=== PATIENT | male | born 1955 | race Caucasian/White ===

== ENCOUNTER 2022-07-09 02:13 | Inpatient (IN) | payer OTHER ==
[2022-07-09 03:27] LABS: Absolute Lymphocytes (CBC) 0.7 K/uL (0.7-4.9); Lymphocytes % 5.4 % (15.3-44.8); MCV 88.7 fL (80-100); MPV 7.4 fL (7.6-11.3); RBC Red Blood Cell Count 3.27 M/uL (4.33-5.43)
[2022-07-09 03:32] LABS: Protime INR 1.27
[2022-07-09] MEDS ORDERED: ACETAMINOPHEN 500 MG TAB ONE (03:39)
[2022-07-09] MEDS ORDERED: MORPHINE 4 MG/ML SYR ONE (03:39)
[2022-07-09] MEDS ORDERED: ONDANSETRON 4 MG/2 ML VIAL ONE (03:40)
[2022-07-09 03:45] LABS: Albumin 3.4 g/dL (3.4-5.0); Bilirubin Total 0.9 mg/dL (0.2-1.0); Potassium 3.4 mmol/L (3.5-5.1); Protein, Total 7.2 g/dL (6.4-8.2)
[2022-07-09] MEDS ORDERED: NA CHLORIDE 0.9% 250 ML ONE ×2 (04:05→06:15)
[2022-07-09] MEDS ORDERED: VANCOMYCIN 1 GM/VIAL ONE (04:05)
--- NOTE | 2022-07-09 04:32 | EDPHYS ---
Physician Documentation [facility] Name: Rufina Ahmadi Age: 66 yrs Sex: Male : 1955 Arrival Date: 07/09/2022 Time: 02:21 Bed 15 Private MD: ED Physician Lee Garcia HPI: 07/09 03:08 This 66 yrs old Male presents to ER via Unassigned with complaints of Leg Pain, Leg rn Swelling. 03:08 The patient presents with pain. The complaints affect the left loco. Onset: The rn symptoms/episode began/occurred yesterday. Modifying factors: The symptoms are alleviated by nothing. the symptoms are aggravated by nothing. Associated signs and symptoms: Pertinent positives: fever, rash, warmth. Severity of symptoms: At their worst the symptoms were moderate, in the emergency department the symptoms are unchanged. The patient has not experienced similar symptoms in the past. The patient has not recently seen a physician. Denies pain, reports warmth to LLE, mild swelling, and chills. . Historical: - Allergies: 04:10 PENICILLINS; ja4 - PMHx: 04:10 Kidney disease; ja4 - Immunization history:: Adult Immunizations up to date. - Family history:: not pertinent. - Social history:: Smoking status: Patient denies any tobacco usage or history of. - Hospitalizations: : No recent hospitalization is reported. ROS: 03:08 Constitutional: + fever and chills Eyes: Negative for injury, pain, redness, and clinical quality rn, Neck: Negative for injury, pain, and swelling, Cardiovascular: Negative for chest pain, palpitations, and edema, Respiratory: Negative for shortness of breath, cough, wheezing, and pleuritic chest pain, Abdomen/GI: Negative for abdominal pain, nausea, vomiting, diarrhea, and constipation, Back: Negative for injury and pain, MS/Extremity: + LLE swelling and pain Skin: + warmth and redness to LLE Neuro: Negative for headache, weakness, numbness, tingling, and seizure. Exam: 03:08 Constitutional: This is a well developed, well nourished patient who is awake, alert, rn and in no acute distress. Head/Face: Normocephalic, atraumatic. Cardiovascular: Tachycardic, irregular Respiratory: + mild tachypnea Abdomen/GI: soft, non-tender Skin: + warmth and erythema LLE MS/ Extremity: Pulses equal, no cyanosis. Neurovascular intact. Full, normal range of motion. Neuro: Awake and alert, GCS 15 06:10 ECG was reviewed by the Attending Physician. rn Vital Signs: 02:34 BP 159 / 82; Pulse 114; Resp 24; Temp 100.4(O); Pulse Ox 97% on R/A; Weight 92.99 kg; 5 Height 5 ft. 10 in. (177.80 cm); 05:32 BP 118 / 72; Pulse 112; Resp 28; Temp 101.4; Pulse Ox 95% on 1 lpm NC; ja4 02:34 Body Mass Index 29.41 (92.99 kg, 177.80 cm) [facility] MDM: 02:23 Patient medically screened. rn 03:48 ED course: Pt meets severe sepsis criteria: Source (A) is cellulitis of LLE, SIRS(B) rn tachycardia and tachypnea as well as elevate WBC; Organ dysfunction (C) is elevated lactate. Already known ESRD. No sign of septic shock at this time. . 04:29 Differential diagnosis: cellulitis, DVT, sepsis. Data reviewed: vital signs, nurses rn notes, lab test result(s), radiologic studies, ultrasound, and as a result, I will admit patient. Counseling: I had a detailed discussion with the patient and/or guardian regarding: the historical points, exam findings, and any diagnostic results supporting the discharge/admit diagnosis, lab results, radiology results, the need for further work-up and treatment in the hospital. Response to treatment: the patient's symptoms have mildly improved after treatment, and as a result, I will admit patient. Admission orders: after a detailed discussion of the patient's condition and case, the admit orders are written by me. 06:02 ED course: Ordered 250cc bolus, still no sign of septic shock, does not require 30ml/kg rn bolus, will give small amount of fluid at a time and reassess given ESRD.. 07/09 02:54 Order name: Blood Culture Adult (2) rn 07/09 02:54 Order name: CBC with Diff; Complete Time: 03:48 rn 07/09 02:54 Order name: CMP; Complete Time: 03:48 rn 07/09 02:54 Order name: Lactate; Complete Time: 03:48 rn 07/09 02:54 Order name: Protime (+inr); Complete Time: 03:48 rn 07/09 02:54 Order name: Ptt, Activated; Complete Time: 03:48 rn 07/09 02:54 Order name: Urine Microscopic Only rn 07/09 02:54 Order name: XRAY Chest (1 view) rn 07/09 02:54 Order name: Extremity Venous Uni Ltd US rn 07/09 05:08 Order name: COVID-19 SARS RT PCR (Document "Date of Onset" if Symptomatic) bb 07/09 07:16 Order name: Lactate Sepsis 2 HR Follow-up EDMS 07/09 02:54 Order name: Cardiac monitoring; Complete Time: 03:58 rn 07/09 02:54 Order name: EKG - Nurse/Tech; Complete Time: 03:58 rn 07/09 02:54 Order name: IV Saline Lock - Large Bore; Complete Time: 03:25 rn 07/09 02:54 Order name: Labs collected and sent; Complete Time: 03:26 rn 07/09 02:54 Order name: O2 Per Protocol; Complete Time: 03:58 rn 07/09 02:54 Order name: O2 Sat Monitoring; Complete Time: 03:58 rn EC:10 Rate is 119 beats/min. Rhythm is irregularly irregular. QRS [place] is Normal. [place] interval rn is normal. QRS interval is normal. QT interval is normal. No Q waves. T waves are Normal. No ST changes noted. Clinical impression: Atrial Fibrillation. Interpreted by me. Reviewed by me. Administered Medications: 03:30 Drug: Zofran (Ondansetron) 4 mg Route: IVP; Site: right antecubital; ja4 07:22 Follow up: Response: No adverse reaction; Nausea is decreased jg9 03:31 Drug: Acetaminophen 1000 mg Route: PO; ja4 07:00 Follow up: Response: No adverse reaction jg9 03:31 Drug: morphine 4 mg Route: IVP; Infused Over: 4 mins; Site: right antecubital; 4 07:22 Follow up: Response: No adverse reaction; Pain is decreased; RASS: Alert and Calm (0) jg9 04:12 Drug: vancoMYCIN 1 grams Route: IVPB; Infused Over: 2 hrs; Site: right antecubital; ja4 07:00 Follow up: IV Status: Completed infusion; IV Intake: 250ml jg9 06:08 Drug: NS 0.9% 250 ml Route: IV; Rate: bolus; Site: right antecubital; ja4 07:00 Follow up: IV Status: Completed infusion; IV Intake: 250ml jg9 Disposition Summary: 07/09/22 04:31 Hospitalization Ordered Hospitalization Status: Inpatient Admission rn Provider: Jun Downey rn Location: Telemetry/MedSurg (Inpatient) rn Condition: Stable rn Problem: new rn Symptoms: have improved rn Bed/Room Type: Standard rn Room Assignment: 414(07/09/22 06:05) mw Diagnosis - Severe sepsis without septic shock rn - Cellulitis of left lower limb rn Forms: - Medication Reconciliation Form rn - SBAR form rn Signatures: Dispatcher [employer] EDMS Sayra Hoyt RN RN Lee Weller MD MD rn Gilmore, Jennifer, RN RN jg9 Francisco Leo RN RN ja4 Corrections: (The following items were deleted from the chart) 04:06 03:08 Constitutional: This is a well developed, well nourished patient who is awake, rn alert, and in no acute distress. Head/Face: Normocephalic, atraumatic. Cardiovascular: Tachycardic, regular Respiratory: + mild tachypnea Abdomen/GI: soft, non-tender Skin: + warmth and erythema LLE MS/ Extremity: Pulses equal, no cyanosis. Neurovascular intact. Full, normal range of motion. Neuro: Awake and alert, GCS 15 rn 06:05 04:31 rn mw
--- NOTE | 2022-07-09 04:32 | ER ---
Nurse's Notes [facility] Name: Rufina Ahmadi Age: 66 yrs Sex: Male : 1955 Arrival Date: 07/09/2022 Time: 02:21 Bed 15 Private MD: Diagnosis: Severe sepsis without septic shock;Cellulitis of left lower limb Presentation: 07/09 04:04 Chief complaint: Patient states: left leg pain for aprox 7 hrs. Coronavirus screen: At ja4 this time, the client does not indicate any symptoms associated with coronavirus-19. Ebola Screen: No symptoms or risks identified at this time. Initial Sepsis Screen: Does the patient meet any 2 criteria? RR > 20 per min. HR > 90 bpm. Yes Does the patient have a suspected source of infection? Yes: Other: left leg. Risk Assessment: Do you want to hurt yourself or someone else? Patient reports no desire to harm self or others. Onset of symptoms was July 08, 2022. 04:04 Method Of Arrival: Ambulatory [facility] 04:04 Acuity: HARINDER 2 ja4 Triage Assessment: 04:10 General: Appears distressed, uncomfortable, obese, Behavior is calm, cooperative, ja4 appropriate for age. Pain: Pain currently is 0 out of 10 on a pain scale. at worst was 10 out of 10 on a pain scale. Quality of pain is described as aching. Musculoskeletal: Reports. Historical: - Allergies: 04:10 PENICILLINS; ja4 - PMHx: 04:10 Kidney disease; ja4 - Immunization history:: Adult Immunizations up to date. - Family history:: not pertinent. - Social history:: Smoking status: Patient denies any tobacco usage or history of. - Hospitalizations: : No recent hospitalization is reported. Screenin:37 Abuse screen: Denies threats or abuse. Nutritional screening: No deficits noted. ja4 Tuberculosis screening: No symptoms or risk factors identified. Fall Risk None identified. Assessment: 03:37 General: Appears uncomfortable, obese, Behavior is cooperative, appropriate for age. ja4 Pain: Pain does not radiate. Pain currently is 10 out of 10 on a pain scale. Is continuous. Cardiovascular: Dialysis shunt:. Respiratory: Respiratory effort is labored. 06:19 Reassessment: report given to ermias arriaza. ja4 Vital Signs: 02:34 BP 159 / 82; Pulse 114; Resp 24; Temp 100.4(O); Pulse Ox 97% on R/A; Weight 92.99 kg; 5 Height 5 ft. 10 in. (177.80 cm); 05:32 BP 118 / 72; Pulse 112; Resp 28; Temp 101.4; Pulse Ox 95% on 1 lpm NC; ja4 02:34 Body Mass Index 29.41 (92.99 kg, 177.80 cm) [facility] ED Course: 02:21 Patient arrived in ED. ja2 02:23 Lee Garcia MD is Attending Physician. rn 02:36 Patient has correct armband on for positive identification. Bed in low position. Call [facility] light in reach. Side rails up X 1. Adult w/ patient. Warm blanket given. Pulse ox on. NIBP on. 02:38 Francisco Leo, KRISHNA is Primary Nurse. ja4 03:26 Blood Culture Adult (2) Sent. ja4 03:37 Inserted saline lock: 20 gauge in right antecubital area, using aseptic technique. ja4 Blood collected. 03:39 XRAY Chest (1 view) In Process Unspecified. EDMS 03:48 Notified ED physician of a critical lab result(s). lactate 3.0, Creatinine of 5.14 Dr jonny Garcia notified. 03:51 Extremity Venous Uni Ltd US In Process Unspecified. EDMS 04:10 Triage completed. ja4 04:31 Jun Downey is Hospitalizing Provider. rn 07:00 Arm band placed on right wrist. jg9 07:19 No provider procedures requiring assistance completed. jg9 07:20 Patient admitted, IV remains in place. jg9 Administered Medications: 03:30 Drug: Zofran (Ondansetron) 4 mg Route: IVP; Site: right antecubital; ja4 07:22 Follow up: Response: No adverse reaction; Nausea is decreased jg9 03:31 Drug: Acetaminophen 1000 mg Route: PO; ja4 07:00 Follow up: Response: No adverse reaction jg9 03:31 Drug: morphine 4 mg Route: IVP; Infused Over: 4 mins; Site: right antecubital; ja4 07:22 Follow up: Response: No adverse reaction; Pain is decreased; RASS: Alert and Calm (0) jg9 04:12 Drug: vancoMYCIN 1 grams Route: IVPB; Infused Over: 2 hrs; Site: right antecubital; ja4 07:00 Follow up: IV Status: Completed infusion; IV Intake: 250ml jg9 06:08 Drug: NS 0.9% 250 ml Route: IV; Rate: bolus; Site: right antecubital; ja4 07:00 Follow up: IV Status: Completed infusion; IV Intake: 250ml jg9 Medication: 03:37 VIS not applicable for this client. ja4 Intake: 07:00 IV: 250ml; Total: 250ml. jg9 07:00 IV: 250ml; Total: 500ml. jg9 Outcome: 04:31 Decision to Hospitalize by Provider. rn 07:19 Admitted to Med/surg accompanied by tech, room 414, with chart, Report called to [facility] report called prior to this nurse arrival 07:20 Condition: stable jg9 07:20 Patient left the ED. jg9 Signatures: Dispatcher [employer] EDLetty Calvin RN RN bb Nieto, Roman, MD MD rn Martinez, Maria Hortensia Soto Jennifer, RN RN jg9 Francisco Leo RN RN ja4 Corrections: (The following items were deleted from the chart) 07:22 07:00 Response: No adverse reaction; Pain is decreased; RASS: Alert and Calm (0) jg9 jg9
--- NOTE | 2022-07-09 05:18 | P.HP ---
Certification for Inpatient Patient admitted to: Inpatient With expected LOS: <2 Midnights Patient will require the following post-hospital care: None Practitioner: I am a practitioner with admitting privileges, knowledge of patient current condition, hospital course, and medical plan of care. Services: Services provided to patient in accordance with Admission requirements found in Title 42 Section 412.3 of the Code of Federal Regulations Patient History Date of Service: 07/09/22 Reason for admission: Cellulitus LLE History of Present Illness: Patient is a 66-year-old male with history of ESRD on HD Monday, hypertension, noninsulin-dependent type 2 diabetes who presented to the ED with complaints of left lower leg pain that began suddenly a few hours prior to arrival. Left lower extremity noted to be warm, tender, and erythematous. Patient was tachycardic, tachypneic, febrile, hypoxic at 88% on RA upon arrival to ED. his labs are significant for WBC 13, hemoglobin 9.7, hematocrit 29, potassium 3.4, glucose 196, creatinine 5.14, BUN 28, lactic acid 3. He was given Tylenol and started on vancomycin. Venous ultrasound pending., Assessment, patient states he is already feeling much better. He is visiting from [place] and has been in the sun and salt water. Wounds/sores noted around entire body. Patient is admitted for further treatment. - Past Medical/Surgical History Diabetic: Yes -: Type 2 Diabetes, Non-Insulin Dependent -: ESRD on HD MWF -: Hypertension -: Nephrectomy -: Appendectomy Psychosocial/ Personal History: Patient lives in [place] with his . - Social History Smoking Status: Never smoker Alcohol use: Yes CD- Drugs: No Caffeine use: Yes Place of Residence: Home Review of Systems General: Fever, Chills Musculoskeletal: Leg Pain Physical Examination - Physical Exam General: Alert, In no apparent distress HEENT: Atraumatic, PERRLA, EOMI, Sclerae nonicteric Neck: Supple, 2+ carotid pulse no bruit, No LAD, Without JVD or thyroid abnormality Respiratory: Clear to auscultation bilaterally, Normal air movement Cardiovascular: Regular rate/rhythm, Normal S1 S2 Gastrointestinal: Normal bowel sounds, No tenderness Integumentary: Skin breakdown, Tenderness/swelling, Erythema, Warmth Neurological: Normal speech, Normal strength at 5/5 x4 extr, Normal tone, Normal affect - Studies Laboratory Data (last 24 hrs) 07/09/22 03:14: PT 14.0 H, INR 1.27, APTT 28.0 07/09/22 03:14: Sodium 140, Potassium 3.4 L, BUN 28 H, Creatinine 5.14 H*, Glucose 196 H, Total Bilirubin 0.9, AST 25, ALT 26, Alkaline Phosphatase 65 07/09/22 03:14: WBC 13.00 H, Hgb 9.7 L, Hct 29.0 L, Plt Count 179 Assessment and Plan - Problems (Diagnosis) (1) Severe sepsis Current Visit: Yes Status: Acute (2) Cellulitis of left lower extremity Current Visit: Yes Status: Acute (3) End-stage renal disease on hemodialysis Current Visit: Yes Status: Chronic (4) Anemia Current Visit: Yes Status: Chronic Qualifiers: Anemia type: due to chronic kidney disease Chronic kidney disease stage: on chronic dialysis Qualified Code(s): N18.6 - End stage renal disease; D63.1 - Anemia in chronic kidney disease; Z99.2 - Dependence on renal dialysis (5) Hypertension Current Visit: Yes Status: Chronic Qualifiers: Hypertension type: primary hypertension Qualified Code(s): I10 - Essential (primary) hypertension (6) Type 2 diabetes mellitus Current Visit: Yes Status: Chronic Qualifiers: Diabetes mellitus long term care pharmacist insulin use: without long term care pharmacist use Diabetes mellitus complication status: with hyperglycemia Qualified Code(s): E11.65 - Type 2 diabetes mellitus with hyperglycemia - Plan -Continue vancomycin -Pend ultrasound result -Morphine as needed pain -Nephrology consult for ESRD. Renal diet -Tylenol as needed fever -Patient initially requiring supplemental oxygen. Wean as tolerated -Glucose monitoring and sliding scale -Monitor and replete electrolytes per protocol -Reconcile and continue home medications -Heparin for VTE ppx -Full code Discharge Plan: Home Plan to discharge in: 48 Hours - Advance Directives Does patient have a Living Will: No Does patient have a Durable POA for Healthcare: No - Code Status/Comfort Care Code Status Assessed: Yes (Full) Critical Care: No Time Spent Managing Pts Care (In Minutes): 50
[2022-07-09] MEDS ORDERED: HYDRALAZINE HCL 20 MG/ML VIAL IV PRN (05:42)
[2022-07-09] MEDS ORDERED: VANCOMYCIN 1 GM in NA CHLORIDE 0.9% 250 ML IVPB SCH (05:42)
[2022-07-09] MEDS: ACETAMINOPHEN 500 MG TAB PO PRN (05:49)
[2022-07-09] MEDS ORDERED: ACETAMINOPHEN 325 MG TABLET ONE (05:56)
[2022-07-09] MEDS ORDERED: VANCOMYCIN 500 MG in NA CHLORIDE 0.9% 100 ML IVPB ONE (07:00)
[2022-07-09] MEDS: INSULIN -REGULAR HUMAN 50 UNIT/0.5 ML ML SQ SCH ×4 (07:30→21:14)
[2022-07-09] MEDS ORDERED: MORPHINE 4 MG/ML SYR IV PRN (08:00)
[2022-07-09] MEDS ORDERED: VANCOMYCIN 1 GM in NA CHLORIDE 0.9% 250 ML IVPB ONE (09:00)
[2022-07-09] MEDS: HEPARIN 5000 UNIT/ML 1 ML VIAL SQ SCH ×2 (09:35→16:35)
[2022-07-09] MEDS ORDERED: ONDANSETRON 4 MG/2 ML VIAL IV PRN (10:00)
[2022-07-09 10:23] VITALS: BMI 29.4
--- NOTE | 2022-07-09 14:22 | P.PN ---
Date of Service: 07/09/22 Patient states he feels better than yesterday. He is complaining of less pain in the left leg. Patient states that his dog scratched him on his left lower about a week ago. He exposed the skin opening to salt water. Diagnosis: Lower extremity cellulitis ESRD on hemodialysis. Plan: Continue antibiotics Add doxycycline to cover vibrio vulfinicus Pain management as needed. Monitor CBC to follow leukocytosis. Follow blood cultures.
[2022-07-09] MEDS: DOXYCYCLINE 100 MG in NA CHLORIDE 0.9% 100 ML IVPB SCH (21:14)
[2022-07-10] MEDS: HEPARIN 5000 UNIT/ML 1 ML VIAL SQ SCH ×3 (00:16→16:32)
[2022-07-10 04:41] LABS: Absolute Lymphocytes (CBC) 1.6 K/uL (0.7-4.9); Hematocrit 26.5 % (39.6-49.0); Lymphocytes % 7.7 % (15.3-44.8); MCV 89.7 fL (80-100); MPV 8.2 fL (7.6-11.3); RBC Red Blood Cell Count 2.96 M/uL (4.33-5.43)
[2022-07-10 05:12] LABS: Magnesium 1.6 mg/dL (1.8-2.4); Phosphorus 5.9 mg/dL (2.5-4.9); Potassium 3.8 mmol/L (3.5-5.1)
[2022-07-10] MEDS: INSULIN -REGULAR HUMAN 50 UNIT/0.5 ML ML SQ SCH ×4 (07:30→21:00)
[2022-07-10] MEDS ORDERED: CEFEPIME 1 GM in NA CHLORIDE 0.9% 100 ML IV ONE (09:00)
[2022-07-10] MEDS: DOXYCYCLINE 100 MG in NA CHLORIDE 0.9% 100 ML IVPB SCH ×2 (09:22→22:13)
--- NOTE | 2022-07-10 15:16 | P.PN ---
Subjective Date of Service: 07/10/22 Chief Complaint: Cellulitus LLE Patient report pain at different spot on his left lower extremity. Leukocytosis trended up. 1 blood culture bottle is growing gram-negative rods. No fever today. Physical Examination - Vital Signs Temperature: 97.9 F Blood Pressure: 127/80 Pulse: 86 Respirations: 14 Pulse Ox (%): 100 Assessment And Plan - Current Problems (Diagnosis) (1) Cellulitis of left lower extremity Current Visit: Yes Status: Acute (2) Severe sepsis Current Visit: Yes Status: Acute (3) End-stage renal disease on hemodialysis Current Visit: Yes Status: Chronic (4) Hypertension Current Visit: Yes Status: Chronic Qualifiers: Hypertension type: primary hypertension Qualified Code(s): I10 - Essential (primary) hypertension (5) Type 2 diabetes mellitus Current Visit: Yes Status: Chronic Qualifiers: Diabetes mellitus prison insulin use: without petroleum terminal plant operator use Diabetes mellitus complication status: with hyperglycemia Qualified Code(s): E11.65 - Type 2 diabetes mellitus with hyperglycemia (6) Anemia in chronic kidney disease Current Visit: Yes Status: Acute - Plan Physical Exam General: Alert, In no apparent distress HEENT: Atraumatic, PERRLA, EOMI, Sclerae nonicteric Neck: Supple, 2+ carotid pulse no bruit, No LAD, Without JVD or thyroid abnormality Respiratory: Clear to auscultation bilaterally, Normal air movement Cardiovascular: Regular rate/rhythm, Normal S1 S2 Gastrointestinal: Normal bowel sounds, No tenderness Integumentary: Multiple scratch wounds on left loco, mild surrounding erythema, warmth, tenderness and swelling Neurological: Normal speech, Normal strength at 5/5 x4 extr. Plan: Continue IV vancomycin and doxycycline. Added IV cefepime due to worsening leukocytosis, and blood culture growing gram- negative antionette. Repeat blood culture Nephrology consulted for hemodialysis. Blood sugar control. Continue insulin sliding scale for glucose management. Resume antihypertensives. Reconcile and continue other home medications.
[2022-07-10] MEDS: CALCIUM ACETATE 667 MG TAB PO SCH (16:32)
--- NOTE | 2022-07-10 17:29 | RAD REPORT ---
EXAM DESCRIPTION: US - Extremity Venous Uni Ltd - 07/09/2022 3:50 am CLINICAL HISTORY: The patient is 66 years old and is Male; Pain TECHNIQUE: Real-time duplex ultrasound scan of the left lower extremity veins integrating B-mode two -dimensional vascular structure, Doppler spectral analysis, color flow Doppler imaging and compressio n. COMPARISON: No relevant prior studies available. FINDINGS: Deep veins: Unremarkable. No DVT in the visualized common femoral, femoral, proximal d eep femoral or popliteal veins. The veins demonstrate normal color flow, are normally compressible, with normal phasic flow and/or augmentation response. Superficial veins: Unremarkable. No thrombus in the visualized great saphenous vein. Soft tissues: Edema lower leg. No popliteal cyst. IMPRESSION: No evidence of acute DVT, left lower extremity. Electronically signed by: Jana Freeman MD 07/09/2022 5:53 AM CDT Due to temporary technical issues with the PACS/Fluency reporting system, reports are being signed by the in house radiologists without review as a courtesy to insure prompt reporting. The interpreting radiologist is fully responsible for the content of the report.
--- NOTE | 2022-07-10 17:34 | RAD REPORT ---
EXAM DESCRIPTION: RAD - Chest Single View - 07/09/2022 3:37 am CLINICAL HISTORY: The patient is 66 years old and is Male; fever, ESRD TECHNIQUE: Single view of the chest. COMPARISON: No relevant prior studies available. FINDINGS: Lungs: No pulmonary vascular congestion or consolidation. Pleural space: Unremarkable. No pneumothorax. Heart: The cardiac silhouette is enlarged versus artifact of AP technique. Mediastinum: Unremarkable. Bones/joints: Degenerative changes in the shoulders. No acute rib fracture. Upper abdomen: No free air in the visualized upper abdomen. IMPRESSION: No acute cardiopulmonary process identified. Electronically signed by: Jana Freeman MD 07/09/2022 6:45 AM CDT Due to temporary technical issues with the PACS/Fluency reporting system, reports are being signed by the in house radiologists without review as a courtesy to insure prompt reporting. The interpreting radiologist is fully responsible for the content of the report.
--- NOTE | 2022-07-10 18:28 | CON ---
Date of Consultation: 07/10/2022 Requesting Provider: Dr. Jun Downey. Reason For Consultation: End-stage renal disease. History Of Present Illness: Mr. Ahmadi is a 66-year-old male with a history of end-stage renal disea se, who initially was on peritoneal dialysis for approximately 2 years as management for his hyperten stacie and diabetes, mediated end-stage renal disease. Approximately one and half years ago, he had re peated episodes of peritonitis and was switched to hemodialysis. He was on a tunneled dialysis lela ter for 6 months and uses an AV fistula. The patient presented with left lower extremity warmth and tenderness and has been admitted with cell ulitis. The patient is a resident of [place], [place] . His is here at the bedside and neither 1 of them are able to recall for temporary damian lysis provider is; however, they do dialyze here at [facility]. The patient is on a Monday, Monday, Monday schedule anywhere from 1-2 L of fluid remove d. At this time, his only complaint is left lower extremity pain; however, he did state that it was improved. Past Medical History: As per HPI. Family History: Noncontributory. Physical Examination: Vital Signs: Blood pressure 127/80, pulse 86, afebrile. GENERAL: No acute distress. Heart: Regular rate and rhythm. No murmurs, rubs, or gallops. Lungs: Grossly clear. Abdomen: Soft. Extremities: With 1+ edema, erythematous lesions noted of the left lower extremity of the left loco. AV fistula located in the left upper extremity medially and has a strong thrill and bruit. Laboratory Data: CBC; WBC 20.3, hemoglobin 8.6, hematocrit 26.5, platelet count 110,000. Serum chem istry; sodium 138, potassium 3.8, chloride 99, CO2 30, BUN 46, creatinine 6.88, phosphorus 5.9, magne sium 1.6. UA from the 10th is not collected. Hepatitis B surface antigen has been ordered. Current Medications: Reviewed. Impression: 1.End-stage renal disease, on hemodialysis. 2.Cellulitis of left lower extremity. 3.Left upper extremity lesions concerning for ischemia versus poor wound healing. 4.Hypertension. 5.Diabetes. 6.Thrombocytopenia. 7.Anemia. Plan: The patient does require continued IV antibiotics for management of cellulitis. Continue woun d care and follow up with primary team. Please ensure antibiotics are dosed appropriately for renal function and levels are being monitored per protocol. The patient does have thrombocytopenia and we would recommend discontinuing any heparin based products. The patient will have iron levels checked for anemia management and will also be started on Epogen 10,000 units IV with every dialysis. Dialys is orders have been placed for tomorrow. The patient's outpatient emergency department rn can be determined once dialysis clinic is open again tomorrow. Please ensure the patient is on a renal diet and we will continue to follow. ZACHARY Voice ID: [id number] Report ID: [id number]
[2022-07-10] MEDS: ACETAMINOPHEN 500 MG TAB PO PRN (22:10)
[2022-07-10] MEDS: ROSUVASTATIN 10 MG TAB PO SCH (22:11)
[2022-07-10] MEDS: BISOPROLOL 5 MG TABLET PO SCH (22:13)
[2022-07-10] MEDS: CEFEPIME 1 GM in NA CHLORIDE 0.9% 100 ML IV SCH (22:14)
[2022-07-11] MEDS: HEPARIN 5000 UNIT/ML 1 ML VIAL SQ SCH ×2 (02:02→08:51)
[2022-07-11 02:05] LABS: Absolute Lymphocytes (CBC) 2.4 K/uL (0.7-4.9); Hematocrit 26.1 % (39.6-49.0); Lymphocytes % 11.5 % (15.3-44.8); MCV 89.6 fL (80-100); MPV 8.7 fL (7.6-11.3); RBC Red Blood Cell Count 2.92 M/uL (4.33-5.43)
[2022-07-11 02:52] LABS: Blood Morphology Comment NOT SEEN (NOT SEEN); Platelet Estimate ADEQ
[2022-07-11] MEDS: INSULIN -REGULAR HUMAN 50 UNIT/0.5 ML ML SQ SCH ×5 (07:30→21:10)
[2022-07-11] MEDS: DOXYCYCLINE 100 MG in NA CHLORIDE 0.9% 100 ML IVPB SCH (08:49)
[2022-07-11] MEDS: ASPIRIN EC 325 MG TABLET PO SCH (08:50)
[2022-07-11] MEDS: FUROSEMIDE 20 MG TABLET PO SCH (08:50)
[2022-07-11] MEDS: TAMSULOSIN 0.4 MG SR CAP PO SCH (08:50)
[2022-07-11] MEDS: DULOXETINE 30 MG CAP PO SCH (08:50)
[2022-07-11] MEDS: FENOFIBRATE 160 MG TAB PO SCH (08:50)
[2022-07-11] MEDS: AMIODARONE HCL 200 MG TAB PO SCH (08:51)
[2022-07-11] MEDS: CALCIUM ACETATE 667 MG TAB PO SCH ×3 (08:51→16:36)
[2022-07-11] MEDS: PANTOPRAZOLE 40MG TABLET PO SCH (08:51)
[2022-07-11] MEDS: HOME MED 1 EA UNK (Febuxostat [Febuxostat] 40 MG Tablet) PO SCH (08:52)
[2022-07-11] MEDS: HOME MED 1 EA UNK (Aripiprazole [Aripiprazole] 2 MG Tablet) PO SCH (08:52)
[2022-07-11] MEDS ORDERED: VANCOMYCIN 1 GM in NA CHLORIDE 0.9% 250 ML IVPB SCH (09:00)
--- NOTE | 2022-07-11 14:31 | P.PN ---
Subjective Date of Service: 07/11/22 Chief Complaint: Cellulitus LLE Patient states he feels much better. States his leg pain has significantly improved. No fever over the past 48 hours but his leukocytosis trended up. Physical Examination - Vital Signs Temperature: 97.6 F Blood Pressure: 164/80 Pulse: 81 Respirations: 16 Pulse Ox (%): 98 Assessment And Plan - Current Problems (Diagnosis) (1) Cellulitis of left lower extremity Current Visit: Yes Status: Acute (2) Severe sepsis Current Visit: Yes Status: Acute (3) End-stage renal disease on hemodialysis Current Visit: Yes Status: Chronic (4) Hypertension Current Visit: Yes Status: Chronic Qualifiers: Hypertension type: primary hypertension Qualified Code(s): I10 - Essential (primary) hypertension (5) Type 2 diabetes mellitus Current Visit: Yes Status: Chronic Qualifiers: Diabetes mellitus assisted insulin use: without termite inspector use Diabetes mellitus complication status: with hyperglycemia Qualified Code(s): E11.65 - Type 2 diabetes mellitus with hyperglycemia (6) Anemia in chronic kidney disease Current Visit: Yes Status: Acute (7) Gram negative sepsis Current Visit: Yes Status: Acute - Plan Physical Exam General: Alert, In no apparent distress HEENT: Atraumatic, PERRLA, EOMI, Sclerae nonicteric Neck: Supple, 2+ carotid pulse no bruit, No LAD, Without JVD or thyroid abnormality Respiratory: Clear to auscultation bilaterally, Normal air movement Cardiovascular: Regular rate/rhythm, Normal S1 S2 Gastrointestinal: Normal bowel sounds, No tenderness Integumentary: Multiple scratch wounds on left loco, surrounding erythema improved. Neurological: Normal speech, Normal strength at 5/5 x4 extr. Plan: Continue IV vancomycin, cefepime and doxycycline. Repeat blood culture is pending Nephrology consulted for hemodialysis. Patient for routine hemodialysis today Continue insulin sliding scale for glucose management. Continue home antihypertensives. Continue other home medications for BPH, gout, psych disorder.
[2022-07-11] MEDS: EPOETIN ALFA 10,000 UNIT/ML VIAL IV SCH (15:15)
[2022-07-11 17:21] LABS: Absolute Lymphocytes (CBC) 1.5 K/uL (0.7-4.9); Hematocrit 28.5 % (39.6-49.0); Lymphocytes % 9.7 % (15.3-44.8); MCV 90.5 fL (80-100); MPV 8.8 fL (7.6-11.3); RBC Red Blood Cell Count 3.15 M/uL (4.33-5.43)
[2022-07-11] MEDS: CEFEPIME 1 GM in NA CHLORIDE 0.9% 100 ML IV SCH (20:53)
[2022-07-11] MEDS: DOXYCYCLINE 100 MG CAP PO SCH (20:55)
[2022-07-11] MEDS: HYDRALAZINE HCL 25 MG TABLET PO SCH (20:55)
[2022-07-11] MEDS: BISOPROLOL 5 MG TABLET PO SCH (20:56)
[2022-07-11] MEDS: ROSUVASTATIN 10 MG TAB PO SCH (20:56)
--- NOTE | 2022-07-11 21:09 | P.PN ---
Date of Service: 07/11/22 Vital Signs Temp Pulse Resp BP Pulse Ox 97.6 F 78 16 117/66 98 07/11/22 14:34 07/11/22 20:56 07/11/22 14:34 07/11/22 20:56 07/11/22 14:34 Medications Acetaminophen (Acetaminophen 500 Mg Tab) 500 mg PO Q4HP PRN PRN Reason: Pain scale 2-4 (Mild) Last Admin: 07/10/22 22:10 Dose: 500 mg Amiodarone HCl (Amiodarone Hcl 200 Mg Tab) 200 mg PO DAILY [facility] Last Admin: 07/11/22 08:51 Dose: 200 mg Aspirin (Aspirin Ec 325 Mg Tablet) 325 mg PO DAILY [facility] Last Admin: 07/11/22 08:50 Dose: 325 mg Bisoprolol Fumarate (Bisoprolol 5 Mg Tablet) 10 mg PO BEDTIME [facility] Last Admin: 07/11/22 20:56 Dose: 10 mg Calcium Acetate (Calcium Acetate 667 Mg Tab) 2,001 mg PO TIDWM [facility] Last Admin: 07/11/22 16:36 Dose: 2,001 mg Doxycycline Monohydrate (Doxycycline 100 Mg Cap) 100 mg PO BID [facility] Last Admin: 07/11/22 20:55 Dose: 100 mg Duloxetine HCl (Duloxetine 30 Mg Cap) 60 mg PO DAILY [facility] Last Admin: 07/11/22 08:50 Dose: 60 mg Epoetin Rony (Epoetin Rony 10,000 Unit/Ml Vial) 10,000 unit IV EVERY HD [facility] Last Admin: 07/11/22 15:15 Dose: 10,000 unit Fenofibrate (Fenofibrate 160 Mg Tab) 160 mg PO DAILY [facility] Last Admin: 07/11/22 08:50 Dose: 160 mg Furosemide (Furosemide 20 Mg Tablet) 20 mg PO DAILY [facility] Last Admin: 07/11/22 08:50 Dose: 20 mg Home Med (Aripiprazole [Aripiprazole]) 1 tab PO DAILY [facility] Last Admin: 07/11/22 08:52 Dose: Not Given Home Med (Febuxostat [Febuxostat]) 1 tab PO DAILY [facility] Last Admin: 07/11/22 08:52 Dose: Not Given Hydralazine HCl (Hydralazine Hcl 20 Mg/Ml Vial) 10 mg IV Q6HP PRN PRN Reason: Titrate to SBP (MUST DEFINE) Hydralazine HCl (Hydralazine Hcl 25 Mg Tablet) 100 mg PO TID [facility] Last Admin: 07/11/22 20:55 Dose: 100 mg Vancomycin HCl 1 gm/ Sodium (Chloride) 250 mls @ 250 mls/hr IVPB AFTER EACH DIALYSIS [facility] Cefepime HCl 1 gm/ Sodium (Chloride) 100 mls @ 200 mls/hr IV Q24H [facility]; Protocol Last Admin: 07/11/22 20:53 Dose: 100 mls Insulin Human Regular (Insulin -Regular Human 50 Unit/0.5 Ml Ml) 0 unit SQ ACHS [facility]; Protocol Last Admin: 07/11/22 20:57 Dose: 7 unit Morphine Sulfate (Morphine 4 Mg/Ml Syr) 4 mg IV Q4H PRN PRN Reason: Pain scale 8-10 (Severe) Nifedipine (Nifedipine Xl 90 Mg Tablet) 90 mg PO DAILY [facility] Ondansetron HCl (Ondansetron 4 Mg/2 Ml Vial) 4 mg IV Q6HP PRN PRN Reason: NAUSEA / VOMITING Pantoprazole Sodium (Pantoprazole 40mg Tablet) 40 mg PO DAILY [facility]; Protocol Last Admin: 07/11/22 08:51 Dose: 40 mg Rosuvastatin Calcium (Rosuvastatin 10 Mg Tab) 20 mg PO BEDTIME [facility] Last Admin: 07/11/22 20:56 Dose: 20 mg Sodium Chloride (Flush Normal Saline 10 Ml) 10 ml IV BID [facility] Last Admin: 07/11/22 20:57 Dose: 10 ml Tamsulosin HCl (Tamsulosin 0.4 Mg Sr Cap) 0.4 mg PO DAILY [facility] Last Admin: 07/11/22 08:50 Dose: 0.4 mg Microbiology Results 07/09/22 03:14 Blood - Blood Aerobic Blood Culture - Preliminary Gram Neg Kavon 07/09/22 03:14 Blood - Blood Anaerobic Blood Culture - Preliminary 07/09/22 03:14 Blood - Blood Gram Stain - Preliminary 07/09/22 03:14 Blood - Blood Aerobic Blood Culture - Preliminary No growth in 24 hours. 07/09/22 03:14 Blood - Blood Anaerobic Blood Culture - Preliminary No growth in 24 hours. Assessment/ Plan: Nephrology Dyspnea improved. SMITH. No chest pain Feeling better. No acute events overnight Vitals, medications, blood work and imaging reviewed in the chart. NAD. NCAT. MMM. Neck supple. Normal respiratory effort. RRR. Abd ND. No C/C. Edema 1-2+. No rash. AAO. Normal speech. ESRD -HD TIW -Acute HD prn HTN with CKD/ CHF -Continue Hydralazine and Nifedipine -Start Losartan BID Diastolic CHF, A/C -Acute HD with UF -Low sodium diet DM II with CKD -No sugar diet -RISS Anemia in CKD -Continue Retacrit CKD MBD -Continue Phoslo -Start Vitamin D BPH with LUTS -Continue Flomax GNR Sepsis LE Cellulitis -Contiue abx -Follow up culture
[2022-07-12 02:47] VITALS: O2SAT 94
[2022-07-12 03:42] LABS: Absolute Lymphocytes (CBC) 1.4 K/uL (0.7-4.9); Hematocrit 26.7 % (39.6-49.0); Lymphocytes % 11.2 % (15.3-44.8); MCV 89.5 fL (80-100); MPV 8.9 fL (7.6-11.3); RBC Red Blood Cell Count 2.99 M/uL (4.33-5.43)
[2022-07-12 04:19] LABS: Albumin 2.8 g/dL (3.4-5.0); Bilirubin Total 0.9 mg/dL (0.2-1.0); Protein, Total 6.6 g/dL (6.4-8.2)
[2022-07-12 05:41] LABS: Magnesium 1.8 mg/dL (1.8-2.4)
[2022-07-12] MEDS: INSULIN -REGULAR HUMAN 50 UNIT/0.5 ML ML SQ SCH ×2 (07:30→11:30)
[2022-07-12] MEDS ORDERED: MAGNESIUM SULFATE 1 gm IVPB 1 GM/100 ML BAG IV ONE (09:00)
[2022-07-12] MEDS ORDERED: NIFEDIPINE XL 90 MG TABLET PO SCH (09:00)
[2022-07-12] MEDS: HOME MED 1 EA UNK (Aripiprazole [Aripiprazole] 2 MG Tablet) PO SCH (09:00)
[2022-07-12] MEDS: FENOFIBRATE 160 MG TAB PO SCH (09:00)
[2022-07-12] MEDS ORDERED: LOSARTAN POTASSIUM 50 MG TABLET PO SCH (09:00)
[2022-07-12] MEDS ORDERED: DOCUSATE NA 100 MG CAP PO SCH (09:00)
[2022-07-12] MEDS: HYDRALAZINE HCL 25 MG TABLET PO SCH ×2 (09:00→14:00)
[2022-07-12] MEDS: HOME MED 1 EA UNK (Febuxostat [Febuxostat] 40 MG Tablet) PO SCH (09:00)
[2022-07-12] MEDS ORDERED: CALCITROL 0.25 MCG CAP PO SCH (09:00)
[2022-07-12] MEDS ORDERED: MULTIVITAMINS,THERAPEUT 1 TAB PO SCH (09:00)
[2022-07-12] MEDS ORDERED: VITAMIN D 5,000 UNIT CAP PO SCH (09:00)
[2022-07-12] MEDS: TAMSULOSIN 0.4 MG SR CAP PO SCH (09:00)
[2022-07-12] MEDS: AMIODARONE HCL 200 MG TAB PO SCH (09:00)
[2022-07-12] MEDS: FUROSEMIDE 20 MG TABLET PO SCH (09:04)
[2022-07-12] MEDS: CALCIUM ACETATE 667 MG TAB PO SCH ×2 (09:04→12:00)
[2022-07-12] MEDS: DULOXETINE 30 MG CAP PO SCH (09:05)
[2022-07-12] MEDS: DOXYCYCLINE 100 MG CAP PO SCH (09:05)
[2022-07-12] MEDS: PANTOPRAZOLE 40MG TABLET PO SCH (09:05)
[2022-07-12] MEDS: ASPIRIN EC 325 MG TABLET PO SCH (09:11)
[2022-07-12 09:42] LABS: Albumin 2.7 g/dL (3.4-5.0); Bilirubin Direct 0.5 mg/dL (0-0.2); Bilirubin Total 0.9 mg/dL (0.2-1.0); Protein, Total 6.5 g/dL (6.4-8.2)
--- NOTE | 2022-07-12 10:12 | P.DS ---
Admission Date: 07/09/22 Discharge Date: 07/12/22 Disposition: ROUTINE DISCHARGE Discharge Condition: GOOD Reason for Admission: Cellulitus LLE Hospital Course: Patient is a 60-60 6-year-old male with ESRD on hemodialysis. He was admitted with sepsis secondary to left lower extremity cellulitis. He did well on broad-spectrum antibiotics. Most of the information on his left lower extremity has subsided. He can be discharged to complete a 4-day course of oral antibiotics. Of note, patient's had a unexplained rise in LFTs during his hospitalization. His liver function test was actually normal when he came in. At this time, his LFTs are trending down. We will ask him to refrain from statin and have a repeat CMP a week from now. Vital Signs/Physical Exam: Temp Pulse Resp BP Pulse Ox 97.3 F 91 H 14 156/87 H 98 07/12/22 08:00 07/12/22 09:04 07/12/22 08:00 07/12/22 09:04 07/12/22 08:00 General: Alert, In no apparent distress HEENT: Atraumatic, Normocephalic Neck: Supple Respiratory: Clear to auscultation bilaterally, Normal air movement Cardiovascular: No edema, Other (Left upper extremity AV fistula) Musculoskeletal: No clubbing, No swelling, No contractures, No erythema Neurological: Normal speech, Normal tone, Sensation intact Laboratory Data at Discharge: WBC 12.10 K/uL (4.3-10.9) H D 07/12/22 02:55 Hgb 8.7 g/dL (13.6-17.9) L 07/12/22 02:55 Hct 26.7 % (39.6-49.0) L 07/12/22 02:55 Plt Count 131 K/uL (152-406) L 07/12/22 02:55 PT 14.0 SECONDS (9.5-12.5) H 07/09/22 03:14 INR 1.27 07/09/22 03:14 APTT 28.0 SECONDS (24.3-36.9) 07/09/22 03:14 Sodium 137 mmol/L (136-145) 07/12/22 02:55 Potassium 4.0 mmol/L (3.5-5.1) 07/12/22 02:55 BUN 54 mg/dL (7-18) H 07/12/22 02:55 Creatinine 6.71 mg/dL (0.55-1.3) H* 07/12/22 02:55 Glucose 122 mg/dL (74-106) H 07/12/22 02:55 Phosphorus 5.9 mg/dL (2.5-4.9) H 07/10/22 04:10 Magnesium 1.8 mg/dL (1.8-2.4) 07/12/22 02:55 Total Bilirubin 0.9 mg/dL (0.2-1.0) 07/12/22 08:53 AST 899 U/L (15-37) H* 07/12/22 08:53 ALT 685 U/L (12-78) H* 07/12/22 08:53 Alkaline Phosphatase 79 U/L (45-117) 07/12/22 08:53 Home Medications: ARIPiprazole [Aripiprazole] 1 tab PO DAILY 07/09/22 Amiodarone HCl [Pacerone] 1 tab PO DAILY 07/09/22 Aspirin [Aspirin EC 325 MG] 1 tab PO DAILY 07/09/22 Calcium Acetate 3 cap PO TIDWM 07/09/22 Cetirizine HCl/Pseudoephedrine [Aller-Nadja D 5-120 mg Tablet] 1 tab PO DAILY PRN 07/09/22 Duloxetine HCl 1 tab PO DAILY 07/09/22 Febuxostat 1 tab PO DAILY 07/09/22 Fenofibrate,Micronized [Fenofibrate] 1 tab PO DAILY 07/09/22 Furosemide 1 tab PO DAILY 07/09/22 Hydralazine HCl 1 tab PO TID 07/09/22 Nifedipine [Procardia Xl] 1 tab PO DAILY 07/09/22 Pantoprazole [Protonix Tab*] 1 tab PO DAILY 07/09/22 Rosuvastatin Calcium 1 tab PO DAILY 07/09/22 Tamsulosin [Flomax*] 1 tab PO DAILY 07/09/22 bisoproloL fumarate [Zebeta*] 10 mg PO BEDTIME 07/09/22 Followup: OOTEvelynOT [Primary Care Provider] -
[2022-07-12] MEDS: EPOETIN ALFA 10,000 UNIT/ML VIAL IV SCH (12:45)
--- NOTE | 2022-07-12 15:43 | EKG ---
Test Date: 2022-07-09 Test Time: 03:50:06 Orthopedic Rn: COLLINS MEASUREMENT RESULTS: Intervals: Rate: 119 FL: QRSD: 82 QT: 348 QTc: 489 [place]: P: FL: QRS: -20 T: 145 INTERPRETIVE STATEMENTS: Atrial fibrillation with rapid ventricular response Nonspecific ST and T wave abnormality Abnormal ECG No previous ECG available for comparison Electronically Signed On 07-12-22 15:41:18 CDT by Eliseo Barr
[2022-07-12 16:24] VITALS: BP 137/65; TEMP 97.8
== END 2022-07-12 15:36 | disposition home or self-care (01) | DRG 871 ==
LOC: EDBD 02:13 → ER 02:13 → ERHOLD 05:12 → 4TH 06:22
PROVIDERS: ADMIT Internal Medicine; ATTEND Internal Medicine
PROC: 5A1D70Z Performance of Urinary Filtration, Intermittent, Less than 6 Hours Per Day (ICD-10-PCS; principal; 2022-07-11)
DX: A41.50 Gram-negative sepsis, unspecified (principal); N18.6 End stage renal disease; I50.33 Acute on chronic diastolic (congestive) heart failure; L03.116 Cellulitis of left lower limb; I13.2 Hypertensive heart and chronic kidney disease with heart failure and with stage 5 chronic kidney disease, or end stage renal disease; E11.22 Type 2 diabetes mellitus with diabetic chronic kidney disease; D63.1 Anemia in chronic kidney disease; E11.65 Type 2 diabetes mellitus with hyperglycemia; N40.1 Benign prostatic hyperplasia with lower urinary tract symptoms; M10.9 Gout, unspecified; M89.8X9 Other specified disorders of bone, unspecified site; R65.20 Severe sepsis without septic shock; Z99.2 Dependence on renal dialysis; Z88.0 Allergy status to penicillin; Z90.5 Acquired absence of kidney; Z90.49 Acquired absence of other specified parts of digestive tract; Z20.822 Contact with and (suspected) exposure to COVID-19
CPT/HCPCS: 36415; 71045; 80048; 80053; 80076; 80202; 82947; 83036; 83540; 83605; 83735; 84100; 84466; 85025; 85610; 85730; 87040; 87205; 87340; 90935; 93005; 93971; 94760; 96365; 96366; 96375; 99285; J0692; J1644; J1815; J2250; J2405; J3370; J3475; J7050; U0003

== ENCOUNTER 2022-07-16 22:20 | Inpatient (IN) | payer OTHER ==
[2022-07-17 00:27] LABS: Absolute Lymphocytes (CBC) 2.2 K/uL (0.7-4.9); Hematocrit 27.4 % (39.6-49.0); Lymphocytes % 24.6 % (15.3-44.8); MCV 90.8 fL (80-100); MPV 8.3 fL (7.6-11.3); RBC Red Blood Cell Count 3.01 M/uL (4.33-5.43)
--- NOTE | 2022-07-17 00:40 | EDPHYS ---
Physician Documentation [facility] Name: Rufina Ahmadi Age: 66 yrs Sex: Male : 1955 Arrival Date: 07/16/2022 Time: 22:22 Bed 18 Private MD: KENNETH Physician Kvng Dorsey HPI: 07/17 00:33 This 66 yrs old Male presents to ER via Ambulatory with complaints of juan carlos Abnormal Lab Results, Sent by Dr. Bazan. 00:33 The patient presents with decreased range of motion, pain, that is acute. The juan carlos complaints affect the lateral aspect of left calf, left calf, medial aspect of left calf and left loco. Context: The problem was sustained at an unknown site, resulted from an unknown cause. Onset: The symptoms/episode began/occurred 3 day(s) ago. Modifying factors: The symptoms are alleviated by elevating leg, remaining still, the symptoms are aggravated by movement. Associated signs and symptoms: The patient has no apparent associated signs or symptoms. Treatment prior to arrival includes: no previous treatment. Severity of symptoms: At their worst the symptoms were mild, in the emergency department the symptoms are unchanged. The patient has not experienced similar symptoms in the past. Historical: - Allergies: 07/16 22:35 PENICILLINS; hb - PMHx: 22:35 kidney disease; HD - MWF; hb - Immunization history:: Adult Immunizations up to date. - Social history:: Smoking status: Patient denies any tobacco usage or history of. - Family history:: not pertinent. ROS: 07/17 00:33 Constitutional: Negative for fever, chills, and weight loss, Eyes: Negative for injury, juan carlos pain, redness, and discharge, ENT: Negative for injury, pain, and discharge, Neck: Negative for injury, pain, and swelling, Cardiovascular: Negative for chest pain, palpitations, and edema, Respiratory: Negative for shortness of breath, cough, wheezing, and pleuritic chest pain, Abdomen/GI: Negative for abdominal pain, nausea, vomiting, diarrhea, and constipation, Back: Negative for injury and pain, : Negative for injury, bleeding, discharge, and swelling, Skin: Negative for injury, rash, and discoloration, Neuro: Negative for headache, weakness, numbness, tingling, and seizure, Psych: Negative for depression, anxiety, suicide ideation, homicidal ideation, and hallucinations, Allergy/Immunology: Negative for hives, rash, and allergies, Endocrine: Negative for neck swelling, polydipsia, polyuria, polyphagia, and marked weight changes, Hematologic/Lymphatic: Negative for swollen nodes, abnormal bleeding, and unusual bruising. MS/extremity: Positive for injury or acute deformity, erythema, pain, of the left leg. Exam: 00:33 Constitutional: This is a well developed, well nourished patient who is awake, alert, juan carlos and in no acute distress. Head/Face: Normocephalic, atraumatic. Eyes: Pupils equal round and reactive to light, extra-ocular motions intact. Lids and lashes normal. Conjunctiva and sclera are non-icteric and not injected. Cornea within normal limits. Periorbital areas with no swelling, redness, or edema. ENT: Nares patent. No nasal discharge, no septal abnormalities noted. Tympanic membranes are normal and external auditory canals are clear. Oropharynx with no redness, swelling, or masses, exudates, or evidence of obstruction, uvula midline. Mucous membranes moist. Neck: Trachea midline, no thyromegaly or masses palpated, and no cervical lymphadenopathy. Supple, full range of motion without nuchal rigidity, or vertebral point tenderness. No Meningismus. Chest/axilla: Normal chest wall appearance and motion. Nontender with no deformity. No lesions are appreciated. Cardiovascular: Regular rate and rhythm with a normal S1 and S2. No gallops, murmurs, or rubs. Normal PMI, no JVD. No pulse deficits. Respiratory: Lungs have equal breath sounds bilaterally, clear to auscultation and percussion. No rales, rhonchi or wheezes noted. No increased work of breathing, no retractions or nasal flaring. Abdomen/GI: Soft, non-tender, with normal bowel sounds. No distension or tympany. No guarding or rebound. No evidence of tenderness throughout. Back: No spinal tenderness. No costovertebral tenderness. Full range of motion. Male : Normal genitalia with no discharge or lesions. Skin: Warm, dry with normal turgor. Normal color with no rashes, no lesions, and no evidence of cellulitis. Neuro: Awake and alert, GCS 15, oriented to person, place, time, and situation. Cranial nerves II-XII grossly intact. Motor strength 5/5 in all extremities. Sensory grossly intact. Cerebellar exam normal. Normal gait. Psych: Awake, alert, with orientation to person, place and time. Behavior, mood, and affect are within normal limits. 00:33 Musculoskeletal/extremity: Extremities: grossly normal except: decreased ROM, pain, ROM: intact in all extremities, full active range of motion, full passive range of motion, in all extremities, Circulation is intact in all extremities. Sensation intact. Compartment Syndrome exam of affected extremity: is normal. Weight bearing: able to fully bear weight, DVT Exam: no swelling, negative Homans' sign noted on exam, no appreciated bluish discoloration, no increased warmth, pain, tenderness, erythema. Vital Signs: 07/16 22:33 BP 136 / 81; Pulse 107; Resp 20; Temp 98.1(O); Pulse Ox 100% on R/A; Weight 92.99 kg; hb Height 5 ft. 10 in. (177.80 cm); Pain 0/10; 22:33 Body Mass Index 29.41 (92.99 kg, 177.80 cm) hb MDM: 23:01 Patient medically screened. [facility] 07/17 00:36 Differential diagnosis: contusion, abrasion, tendonitis. Data reviewed: vital signs, [facility] nurses notes, lab test result(s), EKG. Data interpreted: bus driver/monitor: rate is 107 beats/min, rhythm is regular. Test interpretation: by ED physician or midlevel provider: ECG. Counseling: I had a detailed discussion with the patient and/or guardian regarding: the historical points, exam findings, and any diagnostic results supporting the discharge/admit diagnosis, lab results, radiology results, the need for further work-up and treatment in the hospital. 07/16 22:49 Order name: CBC with Diff la07/16 22:49 Order name: CMP 1 07/16 22:49 Order name: Blood Culture Adult (2) 07/16 22:49 Order name: Lactate la07/16 22:49 Order name: Procalcitonin la07/16 22:50 Order name: SARS RAPID la07/16 22:49 Order name: IV; Complete Time: 00:22 la Administered Medications: 01:30 Drug: Cefepime 1 grams Route: IVPB; Rate: 200 ml/hr; Infused Over: 30 mins; Site: right tw5 upper arm; Disposition Summary: 07/17/22 00:39 Hospitalization Ordered Hospitalization Status: Inpatient Admission juan carlos Provider: Isaac Bazan cha Condition: Fair juan carlos Problem: new juan carlos Symptoms: have improved juan carlos Bed/Room Type: Standard juan carlos Location: Telemetry/MedSurg (Inpatient)(07/17/22 03:34) cg Room Assignment: [facility](07/17/22 03:34) Diagnosis - Cellulitis and acute lymphangitis of other parts of limb juan carlos - End stage renal disease - on HD juan carlos Forms: - Medication Reconciliation Form juan carlos - SBAR form juan carlos Signatures: Dispatcher [employer] EDKvng Ferrera MD MD cha Attema, Lee, ASPARAGUS CUTTER-C ASPARAGUS CUTTER-Cla1 Maeve Roy RN RN Alma Delia Nation RN RN hb Wood, Tiffany tw5 Corrections: (The following items were deleted from the chart) 02:08 00:39 Telemetry/MedSurg (Inpatient) juan carlos cg 02:08 00:39 juan carlos cg 03:34 02:08 [facility] ER HOLD cg cg 03:34 02:08 ERHOLD- cg cg 03:34 03:34 cg cg
--- NOTE | 2022-07-17 00:40 | ER ---
Nurse's Notes [facility] Name: Rufina Ahmadi Age: 66 yrs Sex: Male : 1955 Arrival Date: 07/16/2022 Time: 22:22 Bed 18 Private MD: Diagnosis: Cellulitis and acute lymphangitis of other parts of limb;End stage renal disease-on HD Presentation: 07/16 22:33 Chief complaint: Recently inpatient for cellulitis of left leg, received a call from Dr. Muse today re: positive blood cultures, instructed to come to ER. Coronavirus screen: At this time, the client does not indicate any symptoms associated with coronavirus-19. Ebola Screen: No symptoms or risks identified at this time. Risk Assessment: Do you want to hurt yourself or someone else? Patient reports no desire to harm self or others. Onset of symptoms was July 16, 2022. 22:33 Method Of Arrival: Ambulatory 22:33 Acuity: HARINDER 3 07/17 01:30 Initial Sepsis Screen: Does the patient meet any 2 criteria? HR > 90 bpm. No. Patient's tw5 initial sepsis screen is negative. Does the patient have a suspected source of infection? No. Patient's initial sepsis screen is negative. Triage Assessment: 01:32 General: Appears in no apparent distress. Behavior is fussy. tw5 01:32 Pain: Denies pain. tw5 Historical: - Allergies: 07/16 22:35 PENICILLINS; hb - PMHx: 22:35 kidney disease; HD - MWF; hb - Immunization history:: Adult Immunizations up to date. - Social history:: Smoking status: Patient denies any tobacco usage or history of. - Family history:: not pertinent. Screenin/18 01:31 Abuse screen: Denies threats or abuse. Nutritional screening: No deficits noted. tw5 Tuberculosis screening: No symptoms or risk factors identified. Fall Risk No fall in past 12 months (0 pts). No secondary diagnosis (0 pts). IV access (20 points). Ambulatory Aid- None/Bed Rest/Nurse Assist (0 pts). Gait- Normal/Bed Rest/Wheelchair (0 pts) Mental Status- Oriented to own ability (0 pts). Total Powell Fall Scale indicates No Risk (0-24 pts). Assessment: 01:28 Reassessment: IV infiltrated , new Iv inserted. tw5 Vital Signs: 07/16 22:33 BP 136 / 81; Pulse 107; Resp 20; Temp 98.1(O); Pulse Ox 100% on R/A; Weight 92.99 kg; hb Height 5 ft. 10 in. (177.80 cm); Pain 0/10; 22:33 Body Mass Index 29.41 (92.99 kg, 177.80 cm) hb ED Course: 22:22 Patient arrived in ED. bp1 22:35 Triage completed. hb 22:35 Arm band placed on. hb 22:58 Kvng Dorsey MD is Attending Physician. juan carlos 07/17 00:00 Initial lab(s) drawn, by mt, sent to lab. First set of blood cultures drawn by mt, [facility] COVID swab sent to lab. 00:20 Inserted saline lock: 20 gauge in right antecubital area, using aseptic technique. 5 Blood collected. 00:21 Patient has correct armband on for positive identification. Placed in gown. Bed in low mh5 position. Call light in reach. Side rails up X 1. Warm blanket given. media monitor on. Pulse ox on. NIBP on. 00:21 SARS RAPID Sent. mh5 00:21 Procalcitonin Sent. mh5 00:21 Lactate Sent. 5 00:21 Blood Culture Adult (2) Sent. 5 00:21 CMP Sent. 5 00:21 CBC with Diff Sent. mh5 00:23 Haroldo Gore RN is Primary Nurse. ke1 00:38 Isaac Bazan MD is Hospitalizing Provider. juan carlos 01:25 Missed attempt(s): 22 gauge in right upper arm. ke1 01:29 Inserted saline lock: 24 gauge in right upper arm, using aseptic technique. ke1 Administered Medications: 01:30 Drug: Cefepime 1 grams Route: IVPB; Rate: 200 ml/hr; Infused Over: 30 mins; Site: right tw5 upper arm; Outcome: 00:39 Decision to Hospitalize by Provider. juan carlos 04:40 Patient left the ED. tw5 Signatures: Kvng Dorsey MD MD cha Baxter, Heather, RN RN Nanda Marques 5 Manda Radford Tiffany [facility] Haroldo Gore RN RN ke1 Corrections: (The following items were deleted from the chart) 01:43 01:29 Inserted saline lock: 22 gauge in right upper arm, using aseptic technique. tw5 ke1
[2022-07-17 00:46] LABS: SARS-CoV-2 Antigen Rapid Res Negative (Negative)
[2022-07-17 00:53] LABS: Albumin 2.9 g/dL (3.4-5.0); Bilirubin Total 0.7 mg/dL (0.2-1.0); Potassium 3.5 mmol/L (3.5-5.1); Protein, Total 6.7 g/dL (6.4-8.2)
[2022-07-17] MEDS ORDERED: CEFEPIME 1 GM/VIAL ONE ×2 (01:14→20:26)
[2022-07-17] MEDS ORDERED: NA CHLORIDE 0.9% 100 ML ONE (01:14)
--- NOTE | 2022-07-17 01:22 | P.HP ---
Certification for Inpatient Patient admitted to: Inpatient With expected LOS: >2 Midnights Patient will require the following post-hospital care: None Practitioner: I am a practitioner with admitting privileges, knowledge of patient current condition, hospital course, and medical plan of care. Services: Services provided to patient in accordance with Admission requirements found in Title 42 Section 412.3 of the Code of Federal Regulations Patient History Date of Service: 07/17/22 Reason for admission: Bacteremia, cellulitis History of Present Illness: 66-year-old male with history of ESRD on HD MWF, atrial fibrillation, hypertension, hyperlipidemia, diabetes most type [id number] who was recently admitted here at for cellulitis of bilateral lower extremities on 07/09/2022 and subsequently discharged on 07/29/2022 presents the emergency department after being called by hospitalist attending for positive blood culture. His blood cultures returned finalized yesterday, the blood cultures obtained on 07/09/2022 were positive with gram-negative rod2 vibrio species. They were pansensitive. Hospitalist attending requested patient return to the hospital for admission for bacteremia/cellulitis. Patient reports some very mild worsening in the pain and redness to his lower extremities his labs in the emergency department were significant for a white blood cell count of 9.0 hemoglobin 9 MJ and 0.4 redemonstration of ESRD his LFTs have significant improved since discharge his AST has decreased significantly from 1172 on 07/12 to 57 today. Will admit for further evaluation and management of cellulitis lower extremities, bacteremia Allergies Penicillins Allergy (Verified 07/09/22 05:42) Hives Home Medications: ARIPiprazole [Aripiprazole] 1 tab PO DAILY 07/09/22 Amiodarone HCl [Pacerone] 1 tab PO DAILY 07/09/22 Aspirin [Aspirin EC 325 MG] 1 tab PO DAILY 07/09/22 Calcium Acetate 3 cap PO TIDWM 07/09/22 Cetirizine HCl/Pseudoephedrine [Aller-Nadja D 5-120 mg Tablet] 1 tab PO DAILY PRN 07/09/22 Duloxetine HCl 1 tab PO DAILY 07/09/22 Febuxostat 1 tab PO DAILY 07/09/22 Fenofibrate,Micronized [Fenofibrate] 1 tab PO DAILY 07/09/22 Furosemide 1 tab PO DAILY 07/09/22 Hydralazine HCl 1 tab PO TID 07/09/22 Nifedipine [Procardia Xl] 1 tab PO DAILY 07/09/22 Pantoprazole [Protonix Tab*] 1 tab PO DAILY 07/09/22 Tamsulosin [Flomax*] 1 tab PO DAILY 07/09/22 bisoproloL fumarate [Zebeta*] 10 mg PO BEDTIME 07/09/22 Calcitrol [Rocaltrol*] 0.5 mcg PO DAILY cap 07/12/22 Cholecalciferol (Vitamin D3) [Vitamin D 5,000 IU Cap*] 5,000 unit PO DAILY cap 07/12/22 clindamycin HCL [Clindamycin HCl] 450 mg PO TID #36 07/12/22 - Past Medical/Surgical History Diabetic: Yes -: Type 2 Diabetes, Non-Insulin Dependent -: ESRD on HD MWF -: Hypertension -: Hyperlipidemia -: A. fib -: Nephrectomy -: Appendectomy Psychosocial/ Personal History: Patient lives in [place] with his . - Social History Smoking Status: Never smoker Alcohol use: Yes CD- Drugs: No Caffeine use: Yes Place of Residence: Home Review of Systems 10-point ROS is otherwise unremarkable Musculoskeletal: Leg Pain Physical Examination - Physical Exam General: Alert, In no apparent distress, Oriented x3 HEENT: Atraumatic, PERRLA, Mucous membr. moist/pink, EOMI, Sclerae nonicteric Neck: Supple, 2+ carotid pulse no bruit, No LAD, Without JVD or thyroid abnormality Respiratory: Clear to auscultation bilaterally, Normal air movement Cardiovascular: Regular rate/rhythm, Normal S1 S2 Capillary refill: <2 Seconds Gastrointestinal: Normal bowel sounds, No tenderness Musculoskeletal: Erythema, Warmth Integumentary: No rashes Neurological: Normal gait, Normal speech, Normal strength at 5/5 x4 extr, Normal tone, Normal affect Lymphatics: No axilla or inguinal lymphadenopathy - Studies Laboratory Data (last 24 hrs) 07/16/22 23:56: Sodium 140, Potassium 3.5, BUN 64 H, Creatinine 7.32 H*, Glucose 183 H, Total Bilirubin 0.7, AST 57 H, ALT 210 H, Alkaline Phosphatase 87 07/16/22 23:56: WBC 9.00, Hgb 9.0 L, Hct 27.4 L, Plt Count 146 L Assessment and Plan - Plan Assessment: Cellulitis of the lower extremitiesbacteremia Atrial fibrillation Diabetes mellitus type [id number] ESRD on HD MWF Hypertension Hyperlipidemia Plan: Cellulitis of the lower extremitiesbacteremia: Blood cultures repeated today with 2 sets in the emergency department. Blood cultures from 07/09/2022 were positive for vibrio that was pansensitive. Patient with penicillin allergy with only mild rash. Patient was started on cefepime in ED will await results from blood cultures. Atrial fibrillation: Continue on medications, monitor on telemetry patient unsure if he is taking chronic anticoagulation or not. Diabetes mellitus type [id number]: Sliding scale insulin. ESRD on HD MWF:Nephrology consult in place last dialysis monday Hypertension: Continue home medications Hyperlipidemia: Continue home medications DVT PPX: Heparin Code status: Full Discharge Plan: Home Plan to discharge in: 72 Hours - Advance Directives Does patient have a Living Will: No Does patient have a Durable POA for Healthcare: No - Code Status/Comfort Care Code Status Assessed: Yes (Full code) Critical Care: No Time Spent Managing Pts Care (In Minutes): 70
[2022-07-17] MEDS ORDERED: ONDANSETRON 4 MG/2 ML VIAL IV PRN (04:04)
[2022-07-17 04:24] VITALS: BMI 29.4
[2022-07-17] MEDS: INSULIN -REGULAR HUMAN 50 UNIT/0.5 ML ML SQ SCH ×4 (07:30→21:00)
[2022-07-17] MEDS: DOXYCYCLINE 100 MG CAP PO SCH ×2 (09:28→21:10)
[2022-07-17] MEDS: HEPARIN 5000 UNIT/ML 1 ML VIAL SQ SCH ×2 (09:29→21:11)
[2022-07-17] MEDS ORDERED: AMLODIPINE 5 MG TAB PO ONE (14:28)
[2022-07-17] MEDS ORDERED: CETIRIZINE PO PRN (14:34)
[2022-07-17] MEDS ORDERED: PSEUDOEPHEDRINE PO PRN (14:34)
[2022-07-17] MEDS: CALCIUM ACETATE 667 MG TAB PO SCH (15:59)
[2022-07-17] MEDS: NIFEDIPINE XL 90 MG TABLET PO SCH (15:59)
--- NOTE | 2022-07-17 17:05 | P.CNS ---
Date of Consult: 07/17/22 Reason for Consult: ESRD Requesting Physician: Isaac Bazan Chief Complaint: Bacteremia, cellulitis History of Present Illness: 00:33 This 66 yrs old Male presents to ER via Ambulatory with complaints of juan carlos Abnormal Lab Results, Sent by Dr. Bazan. 00:33 The patient presents with decreased range of motion, pain, that is acute. The juan carlos complaints affect the lateral aspect of left calf, left calf, medial aspect of left calf and left loco. Context: The problem was sustained at an unknown site, resulted from an unknown cause. Onset: The symptoms/episode began/occurred 3 day(s) ago. Modifying factors: The symptoms are alleviated by elevating leg, remaining still, the symptoms are aggravated by movement. Associated signs and symptoms: The patient has no apparent associated signs or symptoms. Treatment prior to arrival includes: no previous treatment. Severity of symptoms: At their worst the symptoms were mild, in the emergency department the symptoms are unchanged. The patient has not experienced similar symptoms in the past. 22:33 Chief complaint: Recently inpatient for cellulitis of left leg, received a call from Dr. Muse today re: positive blood cultures, instructed to come to ER. Coronavirus screen: At this time, the client does not indicate any symptoms associated with coronavirus-19. Ebola Screen: No symptoms or risks identified at this time. Risk Assessment: Do you want to hurt yourself or someone else? Patient reports no desire to harm self or others. Onset of symptoms was July 16, 2022. Allergies Penicillins Allergy (Verified 07/09/22 05:42) Hives Home medications list reviewed: Yes Home Medications: ARIPiprazole [Aripiprazole] 1 tab PO DAILY 07/09/22 Amiodarone HCl [Pacerone] 1 tab PO DAILY 07/09/22 Aspirin [Aspirin EC 325 MG] 1 tab PO DAILY 07/09/22 Calcium Acetate 3 cap PO TIDWM 07/09/22 Cetirizine HCl/Pseudoephedrine [Aller-Nadja D 5-120 mg Tablet] 1 tab PO DAILY PRN 07/09/22 Duloxetine HCl 1 tab PO DAILY 07/09/22 Febuxostat 1 tab PO DAILY 07/09/22 Fenofibrate,Micronized [Fenofibrate] 1 tab PO DAILY 07/09/22 Furosemide 1 tab PO DAILY 07/09/22 Hydralazine HCl 1 tab PO TID 07/09/22 Nifedipine [Procardia Xl] 1 tab PO DAILY 07/09/22 Pantoprazole [Protonix Tab*] 1 tab PO DAILY 07/09/22 Tamsulosin [Flomax*] 1 tab PO DAILY 07/09/22 bisoproloL fumarate [Zebeta*] 10 mg PO BEDTIME 07/09/22 Calcitrol [Rocaltrol*] 0.5 mcg PO DAILY cap 07/12/22 Cholecalciferol (Vitamin D3) [Vitamin D 5,000 IU Cap*] 5,000 unit PO DAILY cap 07/12/22 clindamycin HCL [Clindamycin HCl] 450 mg PO TID #36 07/12/22 - Past Medical/Surgical History Diabetic: Yes -: Type 2 Diabetes, Non-Insulin Dependent -: ESRD on HD MWF in [place] -: Hypertension -: Hyperlipidemia -: A. fib -: Nephrectomy -: Appendectomy Psychosocial/ Personal History: Patient lives in [place] with his . - Social History Alcohol use: Yes CD- Drugs: No Caffeine use: Yes Place of Residence: Home Review of Systems 10-point ROS is otherwise unremarkable General: Weakness Integumentary: Lesions Physical Examination Temp Pulse Resp BP Pulse Ox 98.0 F 114 H 16 190/109 H 98 07/17/22 16:00 07/17/22 16:00 07/17/22 16:00 07/17/22 16:00 07/17/22 16:00 General: In no apparent distress, Oriented x3, Cooperative HEENT: Atraumatic Neck: Supple Respiratory: Clear to auscultation bilaterally Cardiovascular: Regular rate/rhythm, Edema Gastrointestinal: Soft and benign, Non-distended Musculoskeletal: No clubbing, No contractures Integumentary: No rashes, No cyanosis, Skin lesion Neurological: Normal speech Laboratory Data (last 24 hrs) 07/16/22 23:56: Sodium 140, Potassium 3.5, BUN 64 H, Creatinine 7.32 H*, Glucose 183 H, Total Bilirubin 0.7, AST 57 H, ALT 210 H, Alkaline Phosphatase 87 07/16/22 23:56: WBC 9.00, Hgb 9.0 L, Hct 27.4 L, Plt Count 146 L Conclusions/Impression: ESRD -HD MWF HTN with CKD/ CHF -Continue Nifedipine ER Diastolic CHF, chronic -HD with UF MWF -Low sodium diet DM II with CKD & Polyneuropathy -RISS Anemia in CKD -Start Retacrit CKD MBD -Continue Vitamin D -Continue Phoslo BPH with LUTS -Continue Flomax Vibrio Bacteremia -Continue Abx Case reviewed with Dr. Bazan Thank you kindly for the referral
[2022-07-17] MEDS: HYDRALAZINE HCL 25 MG TABLET PO SCH (18:27)
[2022-07-17] MEDS ORDERED: MANNITOL 25% 12.5 GM/50 ML VIAL IV PRN (18:58)
[2022-07-17] MEDS ORDERED: NA CHLORIDE 0.9% 1,000 ML IV PRN (18:58)
[2022-07-17] MEDS ORDERED: ALBUMIN HUMAN 25% 50 ML IV SCH (19:00)
[2022-07-17] MEDS ORDERED: PNEUMOCOCCAL VACCINE 0.5 ML IMVAC ONE (20:00)
[2022-07-17] MEDS: EPOETIN ALFA 10,000 UNIT/ML VIAL SQ SCH (20:00)
[2022-07-17] MEDS ORDERED: CEFEPIME 1 GM in NA CHLORIDE 0.9% 100 ML IV SCH (20:00)
[2022-07-17] MEDS ORDERED: BISOPROLOL 5 MG TABLET PO SCH (21:00)
[2022-07-17] MEDS: DOCUSATE NA 100 MG CAP PO SCH (21:11)
[2022-07-18 03:47] LABS: Absolute Lymphocytes (CBC) 1.5 K/uL (0.7-4.9); Hematocrit 26.2 % (39.6-49.0); Lymphocytes % 13.9 % (15.3-44.8); MCV 90.6 fL (80-100); RBC Red Blood Cell Count 2.89 M/uL (4.33-5.43)
[2022-07-18 04:26] LABS: Albumin 2.9 g/dL (3.4-5.0); Bilirubin Total 0.8 mg/dL (0.2-1.0); Magnesium 1.8 mg/dL (1.8-2.4); Phosphorus 5.7 mg/dL (2.5-4.9); Potassium 4.7 mmol/L (3.5-5.1); Protein, Total 6.4 g/dL (6.4-8.2)
[2022-07-18] MEDS: HYDRALAZINE HCL 25 MG TABLET PO SCH ×2 (06:11→14:00)
[2022-07-18] MEDS: INSULIN -REGULAR HUMAN 50 UNIT/0.5 ML ML SQ SCH ×3 (07:30→16:30)
[2022-07-18] MEDS ORDERED: SEVELAMER CARBONATE 800 MG TABLET PO SCH (08:00)
[2022-07-18] MEDS ORDERED: ASPIRIN EC 325 MG TABLET PO SCH (09:00)
[2022-07-18] MEDS ORDERED: AMIODARONE HCL 200 MG TAB PO SCH (09:00)
[2022-07-18] MEDS ORDERED: FUROSEMIDE 20 MG TABLET PO SCH (09:00)
[2022-07-18] MEDS ORDERED: CALCITROL 0.25 MCG CAP PO SCH ×2 (09:00)
[2022-07-18] MEDS ORDERED: Febuxostat 40 MG Tablet PO SCH (09:00)
[2022-07-18] MEDS ORDERED: VITAMIN D 5,000 UNIT CAP PO SCH ×2 (09:00)
[2022-07-18] MEDS ORDERED: TAMSULOSIN 0.4 MG SR CAP PO SCH (09:00)
[2022-07-18] MEDS ORDERED: NIFEDIPINE XL 90 MG TABLET PO SCH (09:00)
[2022-07-18] MEDS: DOXYCYCLINE 100 MG CAP PO SCH (09:02)
[2022-07-18] MEDS: DOCUSATE NA 100 MG CAP PO SCH (09:03)
[2022-07-18] MEDS: HEPARIN 5000 UNIT/ML 1 ML VIAL SQ SCH (09:03)
[2022-07-18] MEDS: NIFEDIPINE XL 90 MG TABLET PO SCH (09:03)
[2022-07-18] MEDS: CALCIUM ACETATE 667 MG TAB PO SCH ×3 (09:03→16:47)
--- NOTE | 2022-07-18 16:38 | P.DS ---
Admission Date: 07/17/22 Discharge Date: 07/18/22 Disposition: ROUTINE DISCHARGE Discharge Condition: FAIR Reason for Admission: Bacteremia, cellulitis - Problems (1) Cellulitis of left lower extremity Status: Acute (2) Gram negative sepsis Status: Acute (3) Severe sepsis Status: Acute (4) End-stage renal disease on hemodialysis Status: Chronic (5) Type 2 diabetes mellitus Status: Chronic Qualifiers: Diabetes mellitus detention insulin use: without long term care administrator use Diabetes mellitus complication status: with hyperglycemia Qualified Code(s): E11.65 - Type 2 diabetes mellitus with hyperglycemia Brief History of Present Illness: 66-year-old male with history of ESRD on HD MWF, atrial fibrillation, hypertension, hyperlipidemia, diabetes most type [id number] who was recently admitted here at for cellulitis of bilateral lower extremities on 07/09/2022 and subsequently discharged on 07/29/2022 presents the emergency department after being called by hospitalist attending for positive blood culture. His blood cultures returned finalized yesterday, the blood cultures obtained on 07/09/2022 were positive with gram-negative rod2 vibrio species. They were pansensitive. Hospitalist attending requested patient return to the hospital for admission for bacteremia/cellulitis. Patient reported some very mild worsening in the pain and redness to his lower extremities.Hhis labs in the emergency department were significant for a white blood cell count of 9.0 hemoglobin 9 MJ and 0.4 redemonstration of ESRD. His LFTs have significant improved since discharge. AST decreased significantly from 1172 on 07/12 to 57 today. He was hospitalized for further management. Hospital Course: Patient admitted to the medical floor and started on antibiotics. Blood cultures done showed no growth. He was seen by nephrology and patient underwent routine hemodialysis. Case discussed with infectious disease who recommended to continue antibiotic therapy with oral Cipro based on organism antibiotic sensitivity. Patient is clinically stable, his lower extremity erythema, swelling and tenderness have significantly improved. Patient is prescribed Cipro to complete 14 days of antibiotic treatment. Vital Signs/Physical Exam: Temp Pulse Resp BP Pulse Ox 96.9 F 100 H 18 193/86 H 99 07/18/22 13:00 07/18/22 13:00 07/18/22 13:00 07/18/22 13:00 07/18/22 13:00 General: Alert, In no apparent distress, Oriented x3 HEENT: Mucous membr. moist/pink Neck: Supple, JVD not distended Respiratory: Clear to auscultation bilaterally, Normal air movement Cardiovascular: No edema, Regular rate/rhythm, Normal S1 S2 Gastrointestinal: Soft and benign, Non-distended Neurological: Normal strength at 5/5 x4 extr Laboratory Data at Discharge: WBC 10.70 K/uL (4.3-10.9) 07/18/22 03:13 Hgb 8.6 g/dL (13.6-17.9) L 07/18/22 03:13 Hct 26.2 % (39.6-49.0) L 07/18/22 03:13 Plt Count 151 K/uL (152-406) L 07/18/22 03:13 Sodium 139 mmol/L (136-145) 07/18/22 03:13 Potassium 4.7 mmol/L (3.5-5.1) D 07/18/22 03:13 BUN 85 mg/dL (7-18) H 07/18/22 03:13 Creatinine 8.92 mg/dL (0.55-1.3) H* 07/18/22 03:13 Glucose 155 mg/dL (74-106) H 07/18/22 03:13 Phosphorus 5.7 mg/dL (2.5-4.9) H 07/18/22 03:13 Magnesium 1.8 mg/dL (1.8-2.4) 07/18/22 03:13 Total Bilirubin 0.8 mg/dL (0.2-1.0) 07/18/22 03:13 AST 32 U/L (15-37) 07/18/22 03:13 ALT 152 U/L (12-78) H 07/18/22 03:13 Alkaline Phosphatase 70 U/L (45-117) 07/18/22 03:13 Home Medications: ARIPiprazole [Aripiprazole] 1 tab PO DAILY 07/09/22 Amiodarone HCl [Pacerone] 1 tab PO DAILY 07/09/22 Aspirin [Aspirin EC 325 MG] 1 tab PO DAILY 07/09/22 Calcium Acetate 3 cap PO TIDWM 07/09/22 Cetirizine HCl/Pseudoephedrine [Aller-Nadja D 5-120 mg Tablet] 1 tab PO DAILY PRN 07/09/22 Duloxetine HCl 1 tab PO DAILY 07/09/22 Febuxostat 1 tab PO DAILY 07/09/22 Fenofibrate,Micronized [Fenofibrate] 1 tab PO DAILY 07/09/22 Furosemide 1 tab PO DAILY 07/09/22 Hydralazine HCl 1 tab PO TID 07/09/22 Nifedipine [Procardia Xl] 1 tab PO DAILY 07/09/22 Pantoprazole [Protonix Tab*] 1 tab PO DAILY 07/09/22 Tamsulosin [Flomax*] 1 tab PO DAILY 07/09/22 bisoproloL fumarate [Zebeta*] 10 mg PO BEDTIME 07/09/22 Calcitrol [Rocaltrol*] 0.5 mcg PO DAILY cap 07/12/22 Cholecalciferol (Vitamin D3) [Vitamin D 5,000 IU Cap*] 5,000 unit PO DAILY cap 07/12/22 Ciprofloxacin HCl [Cipro 500 MG Tablet] 500 mg PO DAILY #10 tab 07/18/22 Epoetin [Retacrit] 10,000 unit SQ M,W,F vial 07/18/22 New Medications: Ciprofloxacin HCl [Cipro 500 MG Tablet] 500 mg PO DAILY #10 tab Diet: Renal Activity: Ad angelo Followup: NONE,NONE [Primary Care Provider] - 1 Week
[2022-07-18] MEDS: EPOETIN ALFA 10,000 UNIT/ML VIAL SQ SCH (18:21)
[2022-07-18 18:36] VITALS: BP 136/81; TEMP 98.1; O2SAT 100
--- NOTE | 2022-07-18 20:52 | P.PN ---
Date of Service: 07/18/22 Vital Signs Temp Pulse Resp BP Pulse Ox 98.1 F 107 H 20 136/81 99 07/18/22 18:34 07/18/22 18:34 07/18/22 18:34 07/18/22 18:34 07/18/22 16:00 Microbiology Results 07/16/22 00:32 Blood - Blood Aerobic Blood Culture - Preliminary No growth in 24 hours. 07/16/22 00:32 Blood - Blood Anaerobic Blood Culture - Preliminary No growth in 24 hours. 07/16/22 00:00 Blood - Blood Aerobic Blood Culture - Preliminary No growth in 24 hours. 07/16/22 00:00 Blood - Blood Anaerobic Blood Culture - Preliminary No growth in 24 hours. Assessment/ Plan: Nephrology No dyspnea No chest pain No acute events overnight Vitals, medications, blood work and imaging reviewed in the chart. General: In no apparent distress, Oriented x3, Cooperative HEENT: Atraumatic Neck: Supple Respiratory: Clear to auscultation bilaterally Cardiovascular: Regular rate/rhythm, Edema Gastrointestinal: Soft and benign, Non-distended Musculoskeletal: No clubbing, No contractures Integumentary: No rashes, No cyanosis, Skin lesion Neurological: Normal speech Laboratory Data 07/16/22 23:56: Sodium 140, Potassium 3.5, BUN 64 H, Creatinine 7.32 H*, Glucose 183 H, Total Bilirubin 0.7, AST 57 H, ALT 210 H, Alkaline Phosphatase 87 07/16/22 23:56: WBC 9.00, Hgb 9.0 L, Hct 27.4 L, Plt Count 146 L Conclusions/Impression: ESRD -HD MWF -Seen and examined at the end of HD today HTN with CKD/ CHF -Continue Nifedipine ER Diastolic CHF, chronic -HD with UF MWF -Low sodium diet DM II with CKD & Polyneuropathy -RISS Anemia in CKD -Continue Retacrit CKD MBD -Continue Vitamin D -Continue Phoslo BPH with LUTS -Continue Flomax Vibrio Bacteremia -Continue Abx
== END 2022-07-18 18:25 | disposition home or self-care (01) | DRG 602 ==
LOC: ER 22:20 → ERHOLD 07-17 01:07 → 4TH 07-17 04:12
PROVIDERS: ADMIT Internal Medicine Sleep Medicine; ATTEND Internal Medicine
DX: L03.116 Cellulitis of left lower limb (principal); N18.6 End stage renal disease; I13.2 Hypertensive heart and chronic kidney disease with heart failure and with stage 5 chronic kidney disease, or end stage renal disease; I50.32 Chronic diastolic (congestive) heart failure; R78.81 Bacteremia; L03.115 Cellulitis of right lower limb; B96.82 Vibrio vulnificus as the cause of diseases classified elsewhere; I48.91 Unspecified atrial fibrillation; E11.22 Type 2 diabetes mellitus with diabetic chronic kidney disease; D63.1 Anemia in chronic kidney disease; E11.42 Type 2 diabetes mellitus with diabetic polyneuropathy; N40.1 Benign prostatic hyperplasia with lower urinary tract symptoms; E78.5 Hyperlipidemia, unspecified; Z20.822 Contact with and (suspected) exposure to COVID-19; Z99.2 Dependence on renal dialysis; Z79.82 Long term (current) use of aspirin; Z79.899 Other long term (current) drug therapy; Z88.0 Allergy status to penicillin; Z90.5 Acquired absence of kidney
CPT/HCPCS: 36415; 80053; 82947; 83605; 83735; 84100; 84145; 85025; 87040; 87811; 90935; 96374; 99284; J0692; J1644; J2250